=== PATIENT | female | born 1970 | race Caucasian/White ===

== ENCOUNTER 2017-01-22 12:36 | Emergency (ER) | payer BC, MEDICARE ==
[2017-01-22 12:59] VITALS: BP 129/83
--- NOTE | 2017-01-22 13:58 | ER Document Report ---
HPI - HPI Patient complains to provider of: ear pain Pain Level: 4 Context: 46 yo female c/o bilat ear pain x 1 week. feels "swollen". denies fever, ear drainage Associated Symptoms: None Exacerbated by: Denies Relieved by: Denies Similar symptoms previously: No Recently seen / treated by doctor: No - ROS Systems Reviewed and Negative: Yes All other systems reviewed and negative - DERM Skin Color: Normal Past Medical History - General Information source: Patient - Social History Smoking Status: Never Smoker Frequency of alcohol use: None Drug Abuse: None Family History: Reviewed & Not Pertinent Patient has suicidal ideation: No Patient has homicidal ideation: No - Past Medical History Cardiac Medical History: Reports: Hx Hypertension Endocrine Medical History: Reports: Hx Hypothyroidism Renal/ Medical History: Denies: Hx Peritoneal Dialysis Psychiatric Medical History: Reports: Hx Anxiety, Hx Depression Past Surgical History: Reports: Hx Gynecologic Surgery, Hx Nose Surgery, Hx Orthopedic Surgery - Immunizations Immunizations up to date: Yes Vertical Provider Document - CONSTITUTIONAL Agree With Documented VS: Yes - INFECTION CONTROL TRAVEL OUTSIDE OF THE [place] IN LAST 30 DAYS: No - HEENT HEENT: Atraumatic, PERRLA Notes: right EAC mildly edematous with thick white exudate, left EAC mild edema no exudate. TMs normal bilat - NECK Neck: Normal Inspection, Supple - RESPIRATORY Respiratory: Breath Sounds Normal, No Respiratory Distress O2 Sat by Pulse Oximetry: 99 - CARDIOVASCULAR Cardiovascular: Regular Rate, Regular Rhythm - NEURO Level of Consciousness: Awake, Alert, Appropriate - DERM Integumentary: Warm, Dry, No Rash Course - Vital Signs Vital signs: Temp Pulse Resp BP Pulse Ox 98.3 F 70 18 129/83 H 99 01/22/17 12:57 01/22/17 12:57 01/22/17 12:57 01/22/17 12:57 01/22/17 12:57 Discharge - Discharge Clinical Impression: External otitis of both ears due to fungus Condition: Stable Disposition: HOME, SELF-CARE Instructions: Use of Ear Drops ([facility]), Otitis Externa ([facility]) Additional Instructions: you have an infetion of the external ear canal keep ears completely dry for 1 week use ear drops as prescribed follow up with primary care if symptoms persist Prescriptions: Ciprofloxacin HCl/Dexameth [Ciprodex Otic Suspension Drops] 3 drop BTH_EAR BID # 1 bottle
== END 2017-01-22 14:05 | disposition home or self-care (01) ==
LOC: ER 12:36
DX: B48.8 Other specified mycoses (principal); H62.43 Otitis externa in other diseases classified elsewhere, bilateral; I10 Essential (primary) hypertension
CPT/HCPCS: 99282